=== PATIENT | male | born 1935 | race Caucasian/White ===

== ENCOUNTER → 2019-10-06 12:31 | Outpatient (CLI) | payer MEDICARE, BC ==
[2012-07-23 06:05] VITALS: BMI 27.8
== END | disposition home or self-care (01) ==
LOC: D.HCCECHO 09:30
PROVIDERS: ATTEND Internal Medicine Interventional Cardiology
DX: I34.0 Nonrheumatic mitral (valve) insufficiency (principal)

== ENCOUNTER 2020-04-14 14:37 | Inpatient (IN) | payer MEDICARE, BC ==
[~2020-04-14] VITALS: Ht 170.2 cm; Wt 81.6 kg
[2020-04-14] MEDS ORDERED: ACETAMINOPHEN500 M1 PO (15:04)
[2020-04-14] MEDS ORDERED: LIPITOR10 MG PO (15:04)
[2020-04-14] MEDS ORDERED: BENADRYL25 MG PO (15:05)
[2020-04-14] MEDS ORDERED: ADVIL200 MG PO (15:05)
[2020-04-14] MEDS ORDERED: IMODIUM2 MG PO (15:06)
[2020-04-14] MEDS ORDERED: LISINOPRIL10 MG PO (15:06)
[2020-04-14] MEDS ORDERED: NAMENDA10 MG PO (15:07)
[2020-04-14] MEDS ORDERED: MILK OF MAGNESI30 ML PO (15:07)
[2020-04-14] MEDS ORDERED: PENTASA500 MG PO (15:08)
[2020-04-14] MEDS ORDERED: MYLANTA / MAALO30 ML PO (15:08)
[2020-04-14] MEDS ORDERED: ZOFRAN4 MG PO (15:09)
[2020-04-14] MEDS ORDERED: EXELON1 PATCH .2 TRANSDERM (15:09)
[2020-04-14 16:00] LABS: BASOPHILS 0.1 % (0-2); EOSINOPHILS 0.1 % (0-7); HEMATOCRIT 33.2 % (42.0-54.0); HEMOGLOBIN 10.3 g/dL (13.5-17.5); IMMATURE GRANULOCYTES 0.4 % (0-5); LYMPHOCYTES 2.5 % (15-50); MCH 29.6 pg (26.0-34.0); MCV 95.4 fL (80.0-100.0); MEAN PLATELET VOLUME 10.1 fL (7.4-10.4); MONOCYTES 3.4 % (2-11); NEUTROPHILS 93.5 % (40-80); PLATELET COUNT 187 10x3/uL (130-400); RBC 3.48 10x6/uL (4.20-6.10); RDW 15.2 % (11.5-14.5); WBC 14.1 10x3/uL (4.8-10.8)
[2020-04-14 16:11] LABS: INR 1.21 (0.85-1.17); PROTIME 15.2 SECONDS (11.6-15.0)
[2020-04-14 16:17] LABS: CALC OSMOLALITY 275 mosm/kg (275-300); CALCIUM 8.6 mg/dL (8.5-10.1); CARBON DIOXIDE 25.2 mmol/L (21.0-32.0); CHLORIDE - SERUM 102 mmol/L (98-107); CREATININE - SERUM 1.4 mg/dL (0.6-1.3); GLUCOSE 162 mg/dL (74-106); POTASSIUM - SERUM 4.3 mmol/L (3.5-5.1); SODIUM 134 mmol/L (136-145); UREA NITROGEN 24 mg/dL (7-18); eGFR NON AFRICAN AMERICAN 51 mL/min (90-120)
[2020-04-14 16:54] LABS: ALBUMIN 1.9 g/dL (3.4-5.0); ALKALINE PHOSPHATASE 153 U/L (30-120); ALT (SGPT) 55 U/L (10-68); BILIRUBIN - TOTAL 0.72 mg/dL (0.2-1.3); CKMB 0.6 U/L (0.0-3.6); CREATINE KINASE 23 UL (21-232); FERRITIN 2077 ng/mL (3-244); PRO BNP 1519 pg/mL (0-450); PROTEIN - SERUM 6.7 g/dL (6.4-8.2); TROPONIN-I < 0.017 ng/mL (0.000-0.060)
[2020-04-14 17:15] LABS: C-REACTIVE PROTEIN 4.4 mg/dL (0.0-0.9)
--- NOTE | 2020-04-14 18:00 | NUR ---
PT RESTING IN POSITION OF COMFORT, DENIES NEEDS AT THIS TIME. WILL CONTINUE TO MONITOR.
[2020-04-14 18:15] VITALS: BP 148/86
--- NOTE | 2020-04-14 19:00 | NUR ---
PT RESTING IN POSITION OF COMFORT, DENIES NEEDS AT THIS TIME. PT IN NO DISTRESS WILL CONTINUE TO MONITOR.
[2020-04-14 19:15] VITALS: BP 152/84
[2020-04-14 20:00] VITALS: BP 178/68
--- NOTE | 2020-04-14 20:00 | NUR ---
PT CHANGED INTO GOWN, BRIEF CHANGED AND NILESH CARE PROVIDED.
[2020-04-14 20:15] VITALS: BP 148/76
--- NOTE | 2020-04-14 20:15 | NUR ---
REPORT GIVEN TO BALDEMAR BORREGO
--- NOTE | 2020-04-14 20:15 | NUR ---
PT TRANSFER TO ROOM 2136 VIA WHEELCHAIR AND HOSPITAL STAFF. PT HAS ALL PERSONAL ITEMS. PT TOLERATED WELL. CALL LIGHT AND OTHER PERSONAL ITEMS WITH IN REACH. BED IS INLOWEST POSITION. PT REFUSES SIDERAILS UP. WILL CONTINUE TO MONITOR
--- NOTE | 2020-04-14 20:31 | NUR ---
ROCEPHIN INFUSION COMPLETE.
--- NOTE | 2020-04-14 21:15 | NUR ---
RECIEVED PT FROM [facility] YOUNG ACCOMPLIED BY HOSPITAL STAFF. PT IS AWAKE ALERT. ALERT TO PLACE AND PERSON. SIDERAILS x2. BED ALARM ON AND ACTIVE. FALL RISK PRECAUIONS IN ORDER. CALL LIGHT AND OHER PERSONAL ITEMS WITH INREACH. PT EDUCATED ON HOW IMPORTANT IT IS TO CALL FOR HELP WHEN GETTING IN AND OUT OF BED AND NEEDED. WILL CONTINUE TO MONITOR
[2020-04-15] VITALS: BP 173/87
--- NOTE | 2020-04-15 01:18 | NUR ---
PT LYING IN BED AWAKE AND ALERT. SCDS ARE ON AND ACTIVE. INCENTIVE SPIROMETER IS AT BEDSIDE. PT HAS NO COMPLAINTS AT THIS TIME. CALL LIGHT WITH IN REACH WILL CONTINUE TO MONITOR
[2020-04-15 04:00] VITALS: BP 142/85
--- NOTE | 2020-04-15 05:48 | NUR ---
PT LAYING INBED AWAKE AND ALERT. NO SIGNS OF DISTRESS NOTED. RESPIRATION EVEN AND UNLABORED. CALL LIGHT WITH IN REACH. WILL CONTINUE TO MONITOR
[2020-04-15 08:04] VITALS: BP 130/46; BP 135/68
[2020-04-15 09:34] LABS: ALBUMIN 1.5 g/dL (3.4-5.0); ALKALINE PHOSPHATASE 122 U/L (30-120); BILIRUBIN - TOTAL 0.59 mg/dL (0.2-1.3); CALCIUM 8.3 mg/dL (8.5-10.1); CARBON DIOXIDE 26.8 mmol/L (21.0-32.0); CHLORIDE - SERUM 104 mmol/L (98-107); CKMB 0.7 U/L (0.0-3.6); CREATINE KINASE 21 UL (21-232); CREATININE - SERUM 1.1 mg/dL (0.6-1.3); POTASSIUM - SERUM 4.3 mmol/L (3.5-5.1); PROTEIN - SERUM 5.7 g/dL (6.4-8.2); SODIUM 135 mmol/L (136-145); TROPONIN-I < 0.017 ng/mL (0.000-0.060); UREA NITROGEN 22 mg/dL (7-18); eGFR NON AFRICAN AMERICAN 67 mL/min (90-120)
[2020-04-15 09:35] LABS: ALT (SGPT) 37 U/L (10-68); CALC OSMOLALITY 272 mosm/kg (275-300); GLUCOSE 93 mg/dL (74-106)
[2020-04-15 09:52] LABS: BASOPHILS 0.1 % (0-2); HEMATOCRIT 29.1 % (42.0-54.0); HEMOGLOBIN 9.1 g/dL (13.5-17.5); IMMATURE GRANULOCYTES 0.6 % (0-5); LYMPHOCYTES 5.5 % (15-50); MCH 29.5 pg (26.0-34.0); MCHC 31.3 g/dL (31.0-37.0); MCV 94.5 fL (80.0-100.0); MEAN PLATELET VOLUME 10.1 fL (7.4-10.4); MONOCYTES 8.4 % (2-11); NEUTROPHILS 84.4 % (40-80); PLATELET COUNT 187 10x3/uL (130-400); RBC 3.08 10x6/uL (4.20-6.10); RDW 15.2 % (11.5-14.5); WBC 10.1 10x3/uL (4.8-10.8)
[2020-04-15 12:49] VITALS: BP 137/65
[2020-04-15 12:59] LABS: PROTEIN - BODY FLUID 2.8 G/DL
[2020-04-15 17:03] VITALS: BP 132/64
--- NOTE | 2020-04-15 19:15 | NUR ---
REPORT RECEIVED, PT CARE ASSUMED. INTRODUCED SELF AND WROTE NAME ON BOARD. PT LYING IN BED, WATCHING TV, A&A. DENIES ANY NEEDS AT THIS TIME. BED IN LOWEST, SRX3, CALL LIGHT WITHIN REACH. WILL CTM.
[2020-04-15 20:30] VITALS: BP 142/70
[2020-04-16 00:30] VITALS: BP 158/83
[2020-04-16 04:30] VITALS: BP 132/66
[2020-04-16 05:25] LABS: BASOPHILS 0.1 % (0-2); EOSINOPHILS 0.7 % (0-7); HEMATOCRIT 29.1 % (42.0-54.0); IMMATURE GRANULOCYTES 0.5 % (0-5); LYMPHOCYTES 5.3 % (15-50); MCH 29.3 pg (26.0-34.0); MCHC 30.9 g/dL (31.0-37.0); MCV 94.8 fL (80.0-100.0); MEAN PLATELET VOLUME 10.4 fL (7.4-10.4); MONOCYTES 6.6 % (2-11); NEUTROPHILS 86.8 % (40-80); PLATELET COUNT 216 10x3/uL (130-400); RBC 3.07 10x6/uL (4.20-6.10); RDW 15.3 % (11.5-14.5); WBC 9.9 10x3/uL (4.8-10.8)
[2020-04-16 06:43] LABS: ALBUMIN 1.6 g/dL (3.4-5.0); ANION GAP 10.9 mmol/L (8-16); BILIRUBIN - TOTAL 0.81 mg/dL (0.2-1.3); CALCIUM 8.3 mg/dL (8.5-10.1); CARBON DIOXIDE 25.3 mmol/L (21.0-32.0); CREATININE - SERUM 1.3 mg/dL (0.6-1.3); POTASSIUM - SERUM 4.2 mmol/L (3.5-5.1); PROTEIN - SERUM 5.8 g/dL (6.4-8.2)
[2020-04-16 08:29] VITALS: BP 149/77
--- NOTE | 2020-04-16 08:32 | NUR ---
PT LAYING SUPINE, EYES CLOSED. RR EVEN AND UNLABORED. NO DISTRESS NOTED. PLATELET COUNT LOW THIS MORNING. REPORTED TO MAHENDRA FERNANDES. LOVENOX HELD PER ORDER. CALL LIGHT WITHIN REACH. BED IN LOWEST POSITION. WILL CONTINUE TO MONITOR.
--- NOTE | 2020-04-16 11:07 | NUR ---
SPOKE WITH DR BELL. NO PLANS TO DO ANY PROCEDURES TODAY. ORDERS RECIEVED TO CONTINUE LOVENOX
--- NOTE | 2020-04-16 12:00 | NUR ---
LARGE BM X1. APPEARS DARK. OCCULT STOOL OBTAINED AND SENT TO LAB. BED BATH RECIEVED. LINENS AND GOWN CHANGED. CALL LIGHT WITHIN REACH. BED IN LOWEST POSITION. WILL CONTINUE TO MONITOR.
[2020-04-16 13:56] VITALS: BP 132/81
[2020-04-16 15:09] LABS: ACID FAST SMEAR Negative (()); AFB SPECIMEN PROCESSING Concentration (())
--- NOTE | 2020-04-16 16:00 | NUR ---
I have reviewed this patient and I concur with the Shift Assessment completed by the Licensed Practical Nurse today this shift.
[2020-04-16 18:25] VITALS: BP 167/84
--- NOTE | 2020-04-16 18:56 | NUR ---
SMALL BM AND VOID X1. LINENS AND GOWN CHANGED. CALL LIGHT WITHIN REACH. WILL CONTINUE TO MONITOR.
--- NOTE | 2020-04-16 19:31 | NUR ---
RECEIVED REPORT, WILL ASSUME CARE OF PT, ASKING TO CALL HIS , TRIED BUT THE LINE WAS BUSY, DENIES ANY OTHER NEEDS AT THIS TIME, BED IS LOW, SRX2, CALL LIGHT IN REACH, WILL CONTINUE PLAN OF CARE
[2020-04-16 20:30] VITALS: BP 161/83
--- NOTE | 2020-04-17 00:08 | NUR ---
INCONT. OF URINE, CLEAN PT UP/CHANGED LINEN
[2020-04-17 00:30] VITALS: BP 134/69
--- NOTE | 2020-04-17 01:47 | NUR ---
I have reviewed this patient and I concur with the Shift Assessment completed by the Licensed Practical Nurse today this shift.
[2020-04-17 04:30] VITALS: BP 135/78
--- NOTE | 2020-04-17 07:00 | NUR ---
RECEIVED REPORT. ASSUMED CARE OF PATIENT. CALL LIGHT WITHIN REACH. PATIENT RESTING WITH EYES CLOSED, EASILY AROUSED. NO DISTRESS. DENIES NEEDS AT THIS TIME.
[2020-04-17 08:48] VITALS: BP 124/73
--- NOTE | 2020-04-17 09:09 | NUR ---
PATIENT NOW HUNGRY AND REQUESTING ENSURE. STRAWBERRY ENSURE PROVIDED. PATIENT SITTING UP IN BED WITH NO FURTHER REQUESTS. CALL LIGHT AND PERSONAL ITEMS PLACED WITHIN REACH.
--- NOTE | 2020-04-17 11:24 | NUR ---
FSBS 188. PATIENT VERY SENSITIVE TO INSULIN AND FSBS DROPS VERY QUICKLY. PATIENT HAS POOR APPETITE AND HAS ONLY BEEN CONSUMING ENSURE. INSULIN NOT ADMINISTERED TO PREVENT HYPOGLYCEMIA.
[2020-04-17 12:59] VITALS: BP 135/72
--- NOTE | 2020-04-17 14:44 | NUR ---
ORAL CARE COMPLETE. NO DISTRESS. DIET REQUEST PLACED FOR ENSURE AT THIS TIME.
--- NOTE | 2020-04-17 16:29 | NUR ---
FSBS 150. NO INSULIN PER SLIDING SCALE.
[2020-04-17 18:04] VITALS: BP 118/78
--- NOTE | 2020-04-17 19:43 | NUR ---
RECIEVED BEDSIDE SHIFT REPORT. ALERT AND ORIENTED X4. REMAINS BEDFAST. TELEMETRY IN PLACE. LOVENOX ON HOLD AT THIS TIME. IV TO LT FA SL. DENIES ANY NEEDS AT THIS TIME.
[2020-04-17 20:00] VITALS: BP 126/76
[2020-04-18] VITALS: BP 136/65
[2020-04-18 04:00] VITALS: BP 142/72
[2020-04-18 06:52] LABS: BASOPHILS 0.1 % (0-2); EOSINOPHILS 1.5 % (0-7); HEMATOCRIT 28.3 % (42.0-54.0); IMMATURE GRANULOCYTES 0.4 % (0-5); LYMPHOCYTES 4.5 % (15-50); MCH 30.3 pg (26.0-34.0); MCHC 31.8 g/dL (31.0-37.0); MCV 95.3 fL (80.0-100.0); MEAN PLATELET VOLUME 9.9 fL (7.4-10.4); MONOCYTES 7.7 % (2-11); NEUTROPHILS 85.8 % (40-80); PLATELET COUNT 204 10x3/uL (130-400); RBC 2.97 10x6/uL (4.20-6.10); RDW 15.6 % (11.5-14.5); WBC 8.5 10x3/uL (4.8-10.8)
[2020-04-18 07:03] LABS: ANION GAP 10.3 mmol/L (8-16); CALCIUM 8.6 mg/dL (8.5-10.1); CARBON DIOXIDE 25.9 mmol/L (21.0-32.0); CREATININE - SERUM 1.2 mg/dL (0.6-1.3); POTASSIUM - SERUM 4.2 mmol/L (3.5-5.1)
--- NOTE | 2020-04-18 07:45 | NUR ---
REPORT RECIEVED. PT SITTING SEMI FOWLERS, RR EVEN AND UNLABORED ON 2L NC. HE HAS A L FA PIV THAT IS CURRENTLY SL. BED LOCKED AND IN LOWEST POSITION, CALL LIGHT WITHIN REACH. WILL CTM
[2020-04-18 10:37] VITALS: BP 123/62
[2020-04-18 11:08] LABS: FUNGUS STAIN Final report (())
[2020-04-18 14:17] VITALS: BP 123/60
--- NOTE | 2020-04-18 16:40 | NUR ---
I have reviewed this patient and I concur with the Shift Assessment completed by the Licensed Practical Nurse today this shift.
--- NOTE | 2020-04-18 19:00 | NUR ---
EVENING ROUNDS COMPLETE. PT SITTING UP IN BED. NO SIGNS OF DISTRESS. PT DENIES ANY PAIN OR NEEDS AT THIS TIME. CL IN REACH, BED IN LOWEST POSITION.
[2020-04-18 20:00] VITALS: BP 149/70
[2020-04-19] VITALS: BP 129/68
[2020-04-19 04:00] VITALS: BP 135/74
[2020-04-19 06:39] LABS: CALC OSMOLALITY 280 mosm/kg (275-300); CALCIUM 8.4 mg/dL (8.5-10.1); CARBON DIOXIDE 25.1 mmol/L (21.0-32.0); CHLORIDE - SERUM 106 mmol/L (98-107); GLUCOSE 97 mg/dL (74-106); POTASSIUM - SERUM 4.5 mmol/L (3.5-5.1); SODIUM 139 mmol/L (136-145); UREA NITROGEN 21 mg/dL (7-18); eGFR NON AFRICAN AMERICAN 75 mL/min (90-120)
[2020-04-19 07:38] LABS: BASOPHILS 0 % (0-2); HEMATOCRIT 28.4 % (42.0-54.0); HEMOGLOBIN 8.8 g/dL (13.5-17.5); IMMATURE GRANULOCYTES 0.3 % (0-5); LYMPHOCYTES 5.4 % (15-50); MCH 29.7 pg (26.0-34.0); MCV 95.9 fL (80.0-100.0); MEAN PLATELET VOLUME 10.5 fL (7.4-10.4); MONOCYTES 8.4 % (2-11); NEUTROPHILS 83.9 % (40-80); PLATELET COUNT 223 10x3/uL (130-400); RBC 2.96 10x6/uL (4.20-6.10); RDW 15.9 % (11.5-14.5); WBC 7.8 10x3/uL (4.8-10.8)
--- NOTE | 2020-04-19 07:53 | NUR ---
REPORT RECIEVED. PT SITTING SEMI FOWLERS IN BED. RR EVEN AND UNLABORED ON 2L NC. HE HAS A L FA PIV THAT IS SL. BED LOCKED AND IN LOWEST POSITION, CALL LIGHT WITHIN REACH. WILL CTM
[2020-04-19 09:30] VITALS: BP 132/71
[2020-04-19 11:52] VITALS: BP 154/97
[2020-04-19 14:00] VITALS: BMI 28.2
--- NOTE | 2020-04-19 15:45 | NUR ---
I have reviewed this patient and I concur with the Shift Assessment completed by the Licensed Practical Nurse today this shift.
--- NOTE | 2020-04-19 15:52 | NUR ---
PT SITTING UP IN BED. RR EVEN AND UNLABORED. ICE WATER RECIEVED PER REQUEST. CALL LIGHT WITHIN REACH. WILL CONTINUE TO MONITOR.
[2020-04-19 17:47] VITALS: BP 121/69
--- NOTE | 2020-04-19 19:00 | NUR ---
REPORT RECEIVED, WILL CONTINUE POC. PATIENT IS AAOX2, LYING IN SEMI-FOWLERS POSITION. REORIENTED PATIENT TO WHY HE'S HERE AND WHY HE CAN'T LEAVE. PATIENT STATES, UNDERSTANDING BUT IS STILL PLEASANTLY CONFUSED. PATIENT DENIES NEEDS AT THIS TIME. NO S/S OF DISTRESS OBSERVED, RR EVEN AND UNLABORED ON 2L O2 VIA NC. CL IN REACH, BED LOCKED AND LOWERED. WILL CTM.
[2020-04-19 20:00] VITALS: BP 154/82
[2020-04-20] VITALS: BP 130/88
--- NOTE | 2020-04-20 03:00 | NUR ---
PATIENT WANTED UP TO CHAIR. CL IN REACH.
[2020-04-20 04:00] VITALS: BP 139/84
--- NOTE | 2020-04-20 06:17 | NUR ---
PATIENT FSBS 118 NO COVERAGE NEEDED. PATIENT UP IN CHAIR.
[2020-04-20] MEDS ORDERED: IPRAT-ALBUT 0.5-3 ML INH (08:24)
[2020-04-20] MEDS ORDERED: ELIQUIS5 MG PO (08:24)
--- NOTE | 2020-04-20 08:53 | MORECARE ---
CASE MANAGEMENT DISCHARGE SUMMARY PATIENT: LASHAE ACOSTA UNIT: [id number] ADM DATE: 04/14/20 AGE: 84 : 34 SEX: M ROOM/BED: D.2139 AUTHOR: JEN TRINIDAD PHYSICIAN: REFERRING PHYSICIAN: DAHIANA HILLS MD DATE OF SERVICE: 04/20/20 Discharge Plan Patient Name: LASHAE ACOSTA [facility] [facility] 1935 Planned Disposition: Home with Hospice Anticipated Discharge Date: Discharge Date: Expected LOS: Initial Reviewer: [email or web address] Initial Review Date: 04/14/2020 Generated: 04/20/20 9:52 am External Providers External Provider: [facility] Next Contact Date: Service Request Date: Service Type: Resolution: Reviewer: Comments: External Provider: [facility] *(provides inpt [facility] Next Contact Date: Service Request Date: Service Type: Resolution: Reviewer: Comments: Patient Name: LASHAE ACOSTA Page [id number] at 0853 All edits/amendments must be made on the electronic document DICTATION DATE: 04/20/20851 CONSTRUCTION CRAFT LABORER: SHANTI 04/20/20851 RPT#: [id number] DC DATE: STATUS: ADM IN [facility] [address] [place] [address] END OF REPORT
--- NOTE | 2020-04-20 09:00 | NUR ---
PT RECEIVED SITTING UP IN CHAIR AWAKE AND ALERT. AFTER BREAKFAST ASSISTED BACK TO BED. PT ABLE TO TAKE MEDS DURING THIS TIME.
--- NOTE | 2020-04-20 09:13 | MORECARE ---
CASE MANAGEMENT DISCHARGE SUMMARY PATIENT: LASHAE ACOSTA UNIT: [id number] ADM DATE: 04/14/20 AGE: 84 : 34 SEX: M ROOM/BED: D.2139 AUTHOR: JEN TRINIDAD PHYSICIAN: REFERRING PHYSICIAN: DAHIANA HILLS MD DATE OF SERVICE: 04/20/20 Discharge Plan Patient Name: LASHAE ACOSTA Facility: [facility]:[place] : 1935 Planned Disposition: Home with Hospice Anticipated Discharge Date: Discharge Date: Expected LOS: Initial Reviewer: [email or web address] Initial Review Date: 04/14/2020 Generated: 04/20/20 10:13 am Comments DCP- Discharge Planning Updated by [email or web address]: Kamila Calzada on 04/20/20 8:[address] Patient Name: LASHAE ACOSTA Encounter No: [id number] : 1935 Primary Insurance: MEDICARE A & B Anticipated DC Date: Planned Disposition: Home with Hospice External Planned Provider: : DCP follow-up note: Cm spoke with Flora at [facility] who stated that they would admit the patient, and DON from the facility would need to come out and evaluate the patient to see if they could accept them back. CM called Mckay SANCHEZ [phone] and left a message to return call. Case management will follow and assist as needed.. Kamila Calzada DCP- Discharge Planning Updated by [email or web address]: Kamila Calzada on 04/20/20 8:[address] Patient Name: LASHAE ACOSTA Admission Status: ER Accout number: [id number] Admission Date: 04-14-2020 : 1935 Admission Diagnosis:SHORTNESS OF BREATH Attending: DAHIANA HILLS Current LOS: 6 Anticipated DC Date: Planned Disposition: Home with Hospice Primary Insurance: MEDICARE A & B Late entry. assessment completed at 04/19/20 @ 1120 Discharge Planning Comments: CM met with patient to complete initial dc planning assessment. CM educated patient on the CM role and verbal consent given by patient to call to complete assessment. Patient is a resident at [facility]. an assisted living facility, and lives with his Beth. CM spoke with Beth about dc plan. Beth states she wants her on hospice, because she does not want anymore biopsies or treatment for his cancer. Beth stated she wants her to come home and live with her on hospice at the assisted living facility. JOHN signed for any hospice. CM Spoke with Flora at [facility] for referral, and faxed clinicals. [facility] hospice will evaluate and admit if appropriate.CM will continue to follow and will assist as needed with dc plans/needs. Sales Engagement Manager: Kamila Calzada Last DP export: 04/20/20 7:53 a Patient Name: LASHAE ACOSTA Page [phone] at 0913 All edits/amendments must be made on the electronic document DICTATION DATE: 04/20/20912 WHEY DEPARTMENT OPERATOR: SHANTI 04/20/20912 RPT#: [id number] DC DATE: STATUS: ADM IN [facility] [address] [place] [address] END OF REPORT
[2020-04-20 09:25] VITALS: BP 136/88
--- NOTE | 2020-04-20 11:38 | MORECARE ---
CASE MANAGEMENT DISCHARGE SUMMARY PATIENT: LASHAE ACOSTA UNIT: [id number] ADM DATE: 04/14/20 AGE: 84 : 34 SEX: M ROOM/BED: D.2139 AUTHOR: JEN TRINIDAD PHYSICIAN: REFERRING PHYSICIAN: DAHIANA HILLS MD DATE OF SERVICE: 04/20/20 Discharge Plan Patient Name: LASHAE ACOSTA Facility: [facility]:[place] : 1935 Planned Disposition: Home with Hospice Anticipated Discharge Date: Discharge Date: Expected LOS: Initial Reviewer: [email or web address] Initial Review Date: 04/14/2020 Generated: 04/20/20 12:37 pm Comments DCP- Discharge Planning Updated by [email or web address]: Kamila Calzada on 04/20/20 8:[address] Patient Name: LASHAE ACOSTA Encounter No: [id number] : 1935 Primary Insurance: MEDICARE A & B Anticipated DC Date: Planned Disposition: Home with Hospice External Planned Provider: : DCP follow-up note: Cm spoke with Flora at [facility] who stated that they would admit the patient, and DON from the facility would need to come out and evaluate the patient to see if they could accept them back. CM called Mckay SANCHEZ [phone] and left a message to return call. Case management will follow and assist as needed.. Kamila Calzada DCP- Discharge Planning Updated by [email or web address]: Kamila Calzada on 04/20/20 8:[address] Patient Name: LASHAE ACOSTA Admission Status: ER Accout number: [id number] Admission Date: 04-14-2020 : 1935 Admission Diagnosis:SHORTNESS OF BREATH Attending: DAHIANA HILLS Current LOS: 6 Anticipated DC Date: Planned Disposition: Home with Hospice Primary Insurance: MEDICARE A & B Late entry. assessment completed at 04/19/20 @ 1120 Discharge Planning Comments: CM met with patient to complete initial dc planning assessment. CM educated patient on the CM role and verbal consent given by patient to call to complete assessment. Patient is a resident at [facility]. an assisted living facility, and lives with his Beth. CM spoke with Beth about dc plan. Beth states she wants her on hospice, because she does not want anymore biopsies or treatment for his cancer. Beth stated she wants her to come home and live with her on hospice at the assisted living facility. JOHN signed for any hospice. CM Spoke with Flora at [facility] for referral, and faxed clinicals. [facility] hospice will evaluate and admit if appropriate.CM will continue to follow and will assist as needed with dc plans/needs. Shelf Stocker: Kamila Calzada External Providers External Provider: OTHER-OTHER Next Contact Date: Service Request Date: Service Type: Resolution: Reviewer: Comments: Last DP export: 04/20/20 8:13 a Patient Name: LASHAE ACOSTA Page 25568 at 1138 All edits/amendments must be made on the electronic document DICTATION DATE: 04/20/201136 SUPERVISOR FITTING: SHANTI 04/20/20 1137 RPT#: [id number] DC DATE: STATUS: ADM IN [facility] [address] [place] [address] END OF REPORT
[2020-04-20 13:15] VITALS: BP 135/65
--- NOTE | 2020-04-20 14:35 | MORECARE ---
CASE MANAGEMENT DISCHARGE SUMMARY PATIENT: LASHAE ACOSTA UNIT: [id number] ADM DATE: 04/14/20 AGE: 84 : 34 SEX: M ROOM/BED: D.2139 AUTHOR: AMOS,DOC PHYSICIAN: REFERRING PHYSICIAN: DAHIANA HILLS MD DATE OF SERVICE: 04/20/20 Discharge Plan Patient Name: LASHAE ACOSTA Facility: [facility]:[place] : 1935 Planned Disposition: Home with Hospice Anticipated Discharge Date: Discharge Date: Expected LOS: Initial Reviewer: [email or web address] Initial Review Date: 04/14/2020 Generated: 04/20/20 3:35 pm Comments DCP- Discharge Planning Updated by [email or web address]: Kamila Calzada on 04/20/20 1:[address] Patient Name: LASHAE ACOSTA Encounter No: [id number] : 1935 Primary Insurance: MEDICARE A & B Anticipated DC Date: Planned Disposition: Home with Hospice External Planned Provider: : DCP follow-up note: MARC spoke with Mario from [facility]. Requested clinicals to be sent to facility for review. Faxed clinicals to [phone]. Thor states he will be by to assess the patient to see if assisted living will meet his needs. Case management will follow and assist as needed. Kamila Calzada MSN,RN,CM DCP- Discharge Planning Updated by [id number]: Kamila Calzada on 04/20/20 8:[address] Patient Name: LASHAE ACOSTA Encounter No: [id number] : 1935 Primary Insurance: MEDICARE A & B Anticipated DC Date: Planned Disposition: Home with Hospice External Planned Provider: : DCP follow-up note: Cm spoke with Flora at [facility] who stated that they would admit the patient, and DON from the facility would need to come out and evaluate the patient to see if they could accept them back. MARC called Mckay SANCHEZ [phone] and left a message to return call. Case management will follow and assist as needed.. Kamila Calzada DCP- Discharge Planning Updated by [email or web address]: Kamila Calzada on 04/20/20 8:[address] Patient Name: LASHAE ACOSTA Admission Status: ER Accout number: [id number] Admission Date: 04-14-2020 : 1935 Admission Diagnosis:SHORTNESS OF BREATH Attending: DAHIANA HILLS Current LOS: 6 Anticipated DC Date: Planned Disposition: Home with Hospice Primary Insurance: MEDICARE A & B Late entry. assessment completed at 04/19/20 @ 1120 Discharge Planning Comments: CM met with patient to complete initial dc planning assessment. CM educated patient on the CM role and verbal consent given by patient to call to complete assessment. Patient is a resident at [facility]. an assisted living facility, and lives with his Beth. CM spoke with Beth about dc plan. Beth states she wants her on hospice, because she does not want anymore biopsies or treatment for his cancer. Beth stated she wants her to come home and live with her on hospice at the assisted living facility. JOHN signed for any hospice. CM Spoke with Flora at [facility] for referral, and faxed clinicals. [facility] hospice will evaluate and admit if appropriate.CM will continue to follow and will assist as needed with dc plans/needs. Termite Inspector: Kamila Calzada External Providers External Provider: OTHER-OTHER Next Contact Date: Service Request Date: Service Type: Resolution: Reviewer: Comments: Last DP export: 04/20/20 10:38 a Patient Name: LASHAE ACOSTA Page [phone] at 1435 All edits/amendments must be made on the electronic document DICTATION DATE: 04/20/20 1435 YARDER BOSS: SHANTI 04/20/20 1435 RPT#: [id number] DC DATE: STATUS: ADM IN [facility] [address] [place] [address] END OF REPORT
[2020-04-20 17:15] VITALS: Ht 170.2 cm; Wt 81.6 kg
[2020-04-20 17:26] VITALS: BP 116/65
--- NOTE | 2020-04-20 19:00 | NUR ---
REPORT RECEIVED, WILL CONTINUE POC. PATIENT IS RESTING WITH EYES CLOSED. NO S/S OF DISTRESS OBSERVED, RR EVEN AND UNLABORED ON 2L O2 VIA NC. CL IN REACH, BED LOCKED AND LOWERED. WILL CTM.
[2020-04-20 20:00] VITALS: BP 112/71
[2020-04-21] VITALS: BP 124/69
[2020-04-21 04:00] VITALS: BP 137/62
--- NOTE | 2020-04-21 06:07 | NUR ---
patient had large soft bm, placido care performed, pads changed, butt paste applied to reddened areas.
[2020-04-21 08:25] VITALS: BP 144/80
--- NOTE | 2020-04-21 09:23 | MORECARE ---
CASE MANAGEMENT DISCHARGE SUMMARY PATIENT: LASHAE ACOSTA UNIT: [id number] ADM DATE: 04/14/20 AGE: 84 : 34 SEX: M ROOM/BED: D.2139 AUTHOR: AMOS,DOC PHYSICIAN: REFERRING PHYSICIAN: DAHIANA HILLS MD DATE OF SERVICE: 04/21/20 Discharge Plan Patient Name: LASHAE ACOSTA Facility: [facility]:[place] : 1935 Planned Disposition: Home with Hospice Anticipated Discharge Date: Discharge Date: Expected LOS: Initial Reviewer: [email or web address] Initial Review Date: 04/14/2020 Generated: 04/21/20 10:23 am Comments DCP- Discharge Planning Updated by [email or web address]: Kamila Calzada on 04/20/20 1:[address] Patient Name: LASHAE ACOSTA Encounter No: [id number] : 1935 Primary Insurance: MEDICARE A & B Anticipated DC Date: Planned Disposition: Home with Hospice External Planned Provider: : DCP follow-up note: MARC spoke with Mario from [facility]. Requested clinicals to be sent to facility for review. Faxed clinicals to [phone]. Thor states he will be by to assess the patient to see if assisted living will meet his needs. Case management will follow and assist as needed. Kamila Calzada MSN,RN,CM DCP- Discharge Planning Updated by [email or web address]: Kamila Calzada on 04/20/20 8:[address] Patient Name: LSAHAE ACOSTA Encounter No: [id number] : 1935 Primary Insurance: MEDICARE A & B Anticipated DC Date: Planned Disposition: Home with Hospice External Planned Provider: : DCP follow-up note: Cm spoke with Flora at [facility] who stated that they would admit the patient, and DON from the facility would need to come out and evaluate the patient to see if they could accept them back. MARC called Mckay SANCHEZ [phone] and left a message to return call. Case management will follow and assist as needed.. Kamila Calzada DCP- Discharge Planning Updated by [email or web address]: Kamila Calzada on 04/20/20 8:[address] Patient Name: LASHAE ACOSTA Admission Status: ER Accout number: [id number] Admission Date: 04-14-2020 : 1935 Admission Diagnosis:SHORTNESS OF BREATH Attending: DAHIANA HILLS Current LOS: 6 Anticipated DC Date: Planned Disposition: Home with Hospice Primary Insurance: MEDICARE A & B Late entry. assessment completed at 04/19/20 @ 1120 Discharge Planning Comments: CM met with patient to complete initial dc planning assessment. CM educated patient on the CM role and verbal consent given by patient to call to complete assessment. Patient is a resident at [facility]. an assisted living facility, and lives with his Beth. CM spoke with Beth about dc plan. Beth states she wants her on hospice, because she does not want anymore biopsies or treatment for his cancer. Beth stated she wants her to come home and live with her on hospice at the assisted living facility. JOHN signed for any hospice. CM Spoke with Flora at [facility] for referral, and faxed clinicals. [facility] hosp[facility] will evaluate and admit if appropriate.CM will continue to follow and will assist as needed with dc plans/needs. Art Museum Docent: Kamila Calzada Last DP export: 04/20/20 1:35 p Patient Name: LASHAE ACOSTA Page 10192 at 0923 All edits/amendments must be made on the electronic document DICTATION DATE: 04/21/20922 ANALYTICAL LAB TECHNICIAN: SHANTI 04/21/20922 RPT#: [id number] DC DATE: STATUS: ADM IN [facility] [address] [place] [address] END OF REPORT
--- NOTE | 2020-04-21 10:19 | NUR ---
I have reviewed this patient and I concur with the Shift Assessment completed by the Licensed Practical Nurse today this shift.
[2020-04-21 13:05] VITALS: BP 127/66
--- NOTE | 2020-04-21 13:38 | NUR ---
Nutrition Follow-up: Poor PO intake but requested additional Ensure this AM. Noted plans to d/c to hospice. Diet: Regular, Ensure TID PO intake: 0-50% Wt: 179.96# (04/19) Labs reviewed Meds reviewed -Encourage PO intake and honor food preferences. -Monitor wt. -RD following.
--- NOTE | 2020-04-21 13:48 | NUR ---
PT DISCHARGED TO [facility] VIA WHEELCHAIR. PIV REMOVED WITH CATHETER TIP FULLY INTACT. TELEMETRY REMOVED AND RETURNED.
--- NOTE | 2020-04-21 13:52 | MORECARE ---
CASE MANAGEMENT DISCHARGE SUMMARY PATIENT: LASHAE ACOSTA UNIT: [id number] ADM DATE: 04/14/20 AGE: 84 : 34 SEX: M ROOM/BED: D.2139 AUTHOR: AMOS,DOC PHYSICIAN: REFERRING PHYSICIAN: DAHIANA HILLS MD DATE OF SERVICE: 04/21/20 Discharge Plan Patient Name: LASHAE ACOSTA Facility: [facility]:[place] : 1935 Planned Disposition: Home with Hospice Anticipated Discharge Date: Discharge Date: 04/21/2020 Expected LOS: Initial Reviewer: [email or web address] Initial Review Date: 04/14/2020 Generated: 04/21/20 2:51 pm Comments DCP- Discharge Planning Updated by [email or web address]: Kamila Calzada on 04/21/20 12:[address] Patient Name: LASHAE ACOSTA Encounter No: [id number] : 1935 Primary Insurance: MEDICARE A & B Anticipated DC Date: Planned Disposition: Home with Hospice External Planned Provider: : DCP follow-up note: Cm spoke with Flora at [facility] who stated that they would admit the patient, and DON from the facility would need to come out and evaluate the patient to see if they could accept them back. CM called Mckay SANCHEZ [phone] and left a message to return call. Case management will follow and assist as needed.. Kamila Calzada DCP- Discharge Planning Updated by [email or web address]: Kamila Calzada on 04/20/20 1:[address] Patient Name: LASHAE ACOSTA Encounter No: [id number] : 1935 Primary Insurance: MEDICARE A & B Anticipated DC Date: Planned Disposition: Home with Hospice External Planned Provider: : DCP follow-up note: MARC spoke with Mario from [facility]. Requested clinicals to be sent to facility for review. Faxed clinicals to [phone]. Thor states he will be by to assess the patient to see if assisted living will meet his needs. Case management will follow and assist as needed. Kamila Calzada MSN,RN,CM DCP- Discharge Planning Updated by [email or web address]: Kamila Calzada on 04/20/20 8:[address] Patient Name: LASHAE ACOSTA Admission Status: ER Accout number: [id number] Admission Date: 04-14-2020 : 1935 Admission Diagnosis:SHORTNESS OF BREATH Attending: DAHIANA HILLS Current LOS: 6 Anticipated DC Date: Planned Disposition: Home with Hospice Primary Insurance: MEDICARE A & B Late entry. assessment completed at 04/19/20 @ 1120 Discharge Planning Comments: CM met with patient to complete initial dc planning assessment. CM educated patient on the CM role and verbal consent given by patient to call to complete assessment. Patient is a resident at [facility]. an assisted living facility, and lives with his Beth. CM spoke with Beth about dc plan. Beth states she wants her on hospice, because she does not want anymore biopsies or treatment for his cancer. Beth stated she wants her to come home and live with her on hospice at the assisted living facility. JOHN signed for any hospice. CM Spoke with Flora at [facility] for referral, and faxed clinicals. [facility] hosp[facility] will evaluate and admit if appropriate.CM will continue to follow and will assist as needed with dc plans/needs. Stone Sandblaster: Kamila Calzada Last DP export: 04/21/20 8:23 a Patient Name: LASHAE ACOSTA Page [id number] at 1352 All edits/amendments must be made on the electronic document DICTATION DATE: 04/21/20 1351 NETWORK SUPPORT SPECIALIST: SHANTI 04/21/20 1351 RPT#: [id number] DC DATE:04/21/20 STATUS: DIS IN [facility] [address] [place] [address] END OF REPORT
--- NOTE | 2020-04-21 15:56 | MORECARE ---
CASE MANAGEMENT DISCHARGE SUMMARY PATIENT: LASHAE ACOSTA UNIT: [id number] ADM DATE: 04/14/20 AGE: 84 : 34 SEX: M ROOM/BED: D.2139 AUTHOR: AMOS,DOC PHYSICIAN: REFERRING PHYSICIAN: DAHIANA HILLS MD DATE OF SERVICE: 04/21/20 Discharge Plan Patient Name: LASHAE ACOSTA Facility: [facility]:[place] : 1935 Planned Disposition: Home with Hospice Anticipated Discharge Date: Discharge Date: 04/21/2020 Expected LOS: Initial Reviewer: [email or web address] Initial Review Date: 04/14/2020 Generated: 04/21/20 4:56 pm Comments DCP- Discharge Planning Updated by [email or web address]: Kamila Calzada on 04/21/20 12:[address] Patient Name: LASHAE ACOSTA Encounter No: [id number] : 1935 Primary Insurance: MEDICARE A & B Anticipated DC Date: Planned Disposition: Home with Hospice External Planned Provider: : DCP follow-up note: Cm spoke with Flora at [facility] who stated that they would admit the patient, and DON from the facility would need to come out and evaluate the patient to see if they could accept them back. CM called Mckay SANCHEZ [phone] and left a message to return call. Case management will follow and assist as needed.. Kamila Calzada DCP- Discharge Planning Updated by [email or web address]: Kamila Calzada on 04/20/20 1:[address] Patient Name: LASHAE ACOSTA Encounter No: [id number] : 1935 Primary Insurance: MEDICARE A & B Anticipated DC Date: Planned Disposition: Home with Hospice External Planned Provider: : DCP follow-up note: MARC spoke with Mario from [facility]. Requested clinicals to be sent to facility for review. Faxed clinicals to [phone]. Thor states he will be by to assess the patient to see if assisted living will meet his needs. Case management will follow and assist as needed. Kamila Calzada MSN,RN,CM DCP- Discharge Planning Updated by [email or web address]: Kamila Calzada on 04/20/20 8:[address] Patient Name: LASHAE ACOSTA Admission Status: ER Accout number: [id number] Admission Date: 04-14-2020 : 1935 Admission Diagnosis:SHORTNESS OF BREATH Attending: DAHIANA HILLS Current LOS: 6 Anticipated DC Date: Planned Disposition: Home with Hospice Primary Insurance: MEDICARE A & B Late entry. assessment completed at 04/19/20 @ 1120 Discharge Planning Comments: CM met with patient to complete initial dc planning assessment. CM educated patient on the CM role and verbal consent given by patient to call to complete assessment. Patient is a resident at [facility]. an assisted living facility, and lives with his Beth. CM spoke with Beth about dc plan. Beth states she wants her on hospice, because she does not want anymore biopsies or treatment for his cancer. Beth stated she wants her to come home and live with her on hospice at the assisted living facility. JOHN signed for any hospice. CM Spoke with Flora at [facility] for referral, and faxed clinicals. [facility] hospice will evaluate and admit if appropriate.CM will continue to follow and will assist as needed with dc plans/needs. Roll Builder: Kamila Calzada Last DP export: 04/21/20 12:52 p Patient Name: LASHAE ACOSTA Page [id number] at 1556 All edits/amendments must be made on the electronic document DICTATION DATE: 04/21/20 1556 BALLISTICS EXPERT: SHANTI 04/21/20 1556 RPT#: [id number] DC DATE:04/21/20 STATUS: DIS IN [facility] [address] [place] [address] END OF REPORT
== END 2020-04-21 13:49 | disposition home health service (06) | DRG 180 ==
LOC: D.ER 14:37 → D.M2 17:54
PROVIDERS: Family Medicine; Internal Medicine Pulmonary Disease; ADMIT Family Medicine; ATTEND Family Medicine
PROC: 0W993ZZ Drainage of Right Pleural Cavity, Percutaneous Approach (ICD-10-PCS; principal; 2020-04-15)
DX: C34.90 Malignant neoplasm of unspecified part of unspecified bronchus or lung (principal); I26.99 Other pulmonary embolism without acute cor pulmonale; J18.9 Pneumonia, unspecified organism; J91.0 Malignant pleural effusion; C79.51 Secondary malignant neoplasm of bone; I82.403 Acute embolism and thrombosis of unspecified deep veins of lower extremity, bilateral; I10 Essential (primary) hypertension; G30.9 Alzheimer's disease, unspecified; F02.80 Dementia in other diseases classified elsewhere, unspecified severity, without behavioral disturbance, psychotic disturbance, mood disturbance, and anxiety; D63.0 Anemia in neoplastic disease; R40.2134 Coma scale, eyes open, to sound, 24 hours or more after hospital admission; R40.2364 Coma scale, best motor response, obeys commands, 24 hours or more after hospital admission; R40.2244 Coma scale, best verbal response, confused conversation, 24 hours or more after hospital admission